=== PATIENT | female | born 1965 | race Two or more races ===

== ENCOUNTER 2021-03-05 08:26 | Day surgery (SDC) | payer OTHER ==
[~2021-03-05 08:26] MED LIST: ANAPROX275 MG PO; ANASTROZOLE1 MG PO; ARMOUR THYROID60 M1 PO
[2021-03-05] MEDS ORDERED: IBU600 MG PO (12:57)
== END 2021-03-05 16:50 | disposition home or self-care (01) ==
LOC: CIR.AMB 08:26
PROVIDERS: ATTEND Obstetrics & Gynecology Gynecology
DX: N84.0 Polyp of corpus uteri (principal); Z20.822 Contact with and (suspected) exposure to COVID-19

== ENCOUNTER 2021-03-07 23:50 | Emergency (ER) | payer OTHER ==
[~2021-03-07] VITALS: Ht 157.5 cm; Wt 57.2 kg
[~2021-03-07 23:50] MED LIST changes: +IBU600 MG PO
== END 2021-03-08 13:56 | disposition home or self-care (01) ==
LOC: ER 23:50
DX: M79.662 Pain in left lower leg (principal); M79.661 Pain in right lower leg